=== PATIENT | female | born 1985 | race African-American/Black ===

== ENCOUNTER 2017-06-17 10:35 | Emergency (ER) | payer OTHER ==
[2017-06-17 11:50] LABS: Hematocrit 41 % (35-47); Hemoglobin 13.8 g/dl (12.0-16.0); Mean Corpuscular HGB Conc 34 g/dl (31-36); Mean Corpuscular Hemoglobin 30 pg (27-31); Mean Corpuscular Volume 88 fL (80-97); Mean Platelet Volume 9 um3 (7.4-10.4); Red Blood Count 4.63 10^6/ul (4.0-5.4); Red Cell Distribution Width 15 % (10.5-15); White Blood Count 7.2 10^3/ul (3.5-10.8)
[2017-06-17 12:09] LABS: BUN/Creatinine Ratio 8.4 (8-20); C Reactive Protein 5.44 mg/L (< 5.00); Calcium 9.3 mg/dL (8.6-10.3); EGFR African American 103.1 (>60); EGFR Non-African American 80.2 (>60); Globulin 3.2 g/dL (2-4); Total Bilirubin 0.6 mg/dL (0.2-1.0); Total Protein 7.2 g/dL (6.4-8.9)
--- NOTE | 2017-06-17 12:57 | RAD ---
HISTORY: Right upper quadrant pain COMPARISONS: August 25, 2014 TECHNIQUE: Multiple transverse and longitudinal ultrasound images were obtained of the right upper quadrant of the abdomen using grayscale and color Doppler imaging. FINDINGS: LIVER: The liver is diffusely echogenic and coarse in echotexture, with decreased acoustic transmission. The liver is otherwise normal in shape, size, and contour. There is normal hepatopedal flow of the portal vein on Doppler imaging. BILIARY TREE: There is no intrahepatic or extrahepatic biliary dilatation. The common duct measures 0.4 cm. GALLBLADDER: There is a [id number]-[id number] complex. There is no sonographic Harry sign. PANCREAS: The head of the pancreas is unremarkable. The tail of the pancreas is not well visualized secondary to overlying bowel gas. RIGHT KIDNEY: The right kidney is normal in shape, size, contour, and echogenicity. There is no hydronephrosis or nephrolithiasis. The right kidney measures 11.4 x 4.5 x 4.1 cm. AORTA AND IVC: The aorta and IVC are unremarkable. FLUID: There are no pleural effusions. There is no free fluid within the hepatorenal recess. OTHER FINDINGS: None. IMPRESSION: 1. CHOLELITHIASIS WITHOUT SONOGRAPHIC FEATURES OF ACUTE CHOLECYSTITIS. 2. FATTY LIVER
[2017-06-17 13:08] LABS: Potassium 3.7 mmol/L (3.5-5.0)
--- NOTE | 2017-06-17 13:50 | ED ---
Dwaine Brand Gabriel, scribed for Henry Dsouza MD on 06/17/17 at 1129 . Abdominal Pain/Female - HPI Summary HPI Summary: This patient is a 31 year old F presenting to [facility] accompanied by family with a chief complaint of ABD pain since yesterday at 15:00. The patient rates the pain 7/10 in severity, in her epigastric region, intermittent, and beginning 20 minutes after eating chicken fingers. Symptoms aggravated by nothing. Symptoms alleviated by nothing. Patient denies N/V, melena, SOB, dyspnea, and CP. She believes the pain is coming from her gallbladder and had a similar episode a year prior. She contributes pain during the last episode to gallbladder sludge , no stones. She denies any chance of with her LNMP being a month ago. - History of Current Complaint Chief Complaint: EDAbdPain Stated Complaint: ABD/BACK PAIN Time Seen by Provider: 06/17/17 11:24 Hx Obtained From: Patient Hx Last Menstrual Period: a month prior ?: No Timing: Intermittent Episode Lasting Severity Initially: Severe Severity Currently: Moderate Pain Intensity: 8 Pain Scale Used: 0-10 Numeric Location: Epigastric Radiates: Yes Radiates to: Back Associated Signs and Symptoms: Positive: Negative - N/V, melena, SOB, dyspnea, and CP. Allergies/Adverse Reactions: Allergies Allergy/AdvReac Type Severity Reaction Status Date / Time No Known Allergies Allergy Verified 06/17/17 10:57 PMH/Surg Hx/FS Hx/Imm Hx Previously Healthy: No Sensory History: Denies: Hx Legally Blind Psychiatric History: Reports: Hx Substance Abuse - most recent pt tox was negative - Surgical History Surgery Procedure, Year, and Place: Infectious Disease History: No Infectious Disease History: Denies: Hx Clostridium Difficile, Hx Hepatitis, Hx Human Immunodeficiency Virus (HIV), Hx of Known/Suspected MRSA, Hx Shingles, Hx Tuberculosis, Hx Known/ Suspected VRE, Hx Known/Suspected VRSA, History Other Infectious Disease, Traveled Outside the [place] in Last 30 Days - Family History Known Family History: Positive: Blood Disorder - sickle cell anemia Negative: Diabetes - Social History Alcohol Use: Occasionally Substance Use Type: Reports: None Smoking Status (MU): Light Every Day Tobacco Smoker Amount Used/How Often: 3 cig/day Have You Smoked in the Last Year: Yes Review of Systems Negative: Chest Pain Respiratory: Negative - dyspnea Negative: Shortness Of Breath Positive: Abdominal Pain - epigastric. Negative: Vomiting, Nausea All Other Systems Reviewed And Are Negative: Yes Physical Exam Triage Information Reviewed: Yes Vital Signs On Initial Exam: Initial Vitals Temp Pulse Resp BP Pulse Ox 98.4 F 91 17 126/75 98 06/17/17 10:41 06/17/17 10:41 06/17/17 10:41 06/17/17 10:41 06/17/17 10:41 Appearance: Positive: Well-Appearing, No Pain Distress Skin: Positive: Warm, Skin Color Reflects Adequate Perfusion Head/Face: Positive: Normal Head/Face Inspection Eyes: Positive: EOMI Neck: Positive: Nontender Respiratory/Lung Sounds: Positive: Clear to Auscultation, Breath Sounds Present Cardiovascular: Positive: RRR. Negative: Murmur Abdomen Description: Positive: Other: - RUQ tenderness Musculoskeletal: Positive: Strength/ROM Intact Neurological: Positive: Sensory/Motor Intact, Alert, Oriented to Person Place, Time, CN Intact II-III Psychiatric: Positive: Normal - Gayla Coma Scale Best Eye Response: 4 - Spontaneous Best Motor Response: 6 - Obeys Commands Best Verbal Response: 5 - Oriented Coma Scale Total: 15 Diagnostics - Vital Signs Vital Signs Temp Pulse Resp BP Pulse Ox 06/17/17 10:59 94 97 06/17/17 10:57 135/72 06/17/17 10:41 98.4 F 91 17 126/75 98 - Laboratory Lab Results: Lab Results 06/17/17 06/17/17 06/17/17 Range/Units 11:39 11:39 11:39 WBC 7.2 (3.5-10.8) 10^3/ul RBC 4.63 (4.0-5.4) 10^6/ul Hgb 13.8 (12.0-16.0) g/dl Hct 41 (35-47) % MCV 88 (80-97) fL MCH 30 (27-31) pg MCHC 34 (31-36) g/dl RDW 15 (10.5-15) % Plt Count 295 (150-450) 10^3/ul MPV 9 (7.4-10.4) um3 Neut % (Auto) 54.6 (38-83) % Lymph % (Auto) 32.2 (25-47) % [place] % (Auto) 8.7 (1-9) % Eos % (Auto) 3.5 (0-6) % Baso % (Auto) 1.0 (0-2) % Absolute Neuts (auto) 3.9 (1.5-7.7) 10^3/ul Absolute Lymphs (auto) 2.3 (1.0-4.8) 10^3/ul Absolute Monos (auto) 0.6 (0-0.8) 10^3/ul Absolute Eos (auto) 0.3 (0-0.6) 10^3/ul Absolute Basos (auto) 0.1 (0-0.2) 10^3/ul Absolute Nucleated RBC 0 10^3/ul Nucleated RBC % 0 Sodium 133 (133-145) mmol/L Potassium Pending Chloride 104 (101-111) mmol/L Carbon Dioxide 25 (22-32) mmol/L Anion Gap Pending BUN 7 (6-24) mg/dL Creatinine 0.83 (0.51-0.95) mg/dL Est GFR ( Amer) 103.1 (>60) Est GFR (Non-Af Amer) 80.2 (>60) BUN/Creatinine Ratio 8.4 (8-20) Glucose 98 (70-100) mg/dL Lactic Acid 0.7 (0.5-2.0) mmol/L Calcium 9.3 (8.6-10.3) mg/dL Total Bilirubin 0.60 (0.2-1.0) mg/dL AST Pending ALT 20 (7-52) U/L Alkaline Phosphatase 62 (34-104) U/L C-Reactive Protein 5.44 H (< 5.00) mg/L Total Protein 7.2 (6.4-8.9) g/dL Albumin 4.0 (3.2-5.2) g/dL Globulin 3.2 (2-4) g/dL Albumin/Globulin Ratio 1.3 (1-3) Lipase 92 H (11.0-82.0) U/L Beta HCG, Quant 45.50 mIU/mL Result Diagrams: 06/17/17 11:39 06/17/17 11:39 Lab Statement: Any lab studies that have been ordered have been reviewed, and results considered in the medical decision making process. - Additional Comments Diagnostic Additional Comments: Us Gallbladder reveals, per radiologist, 1. CHOLELITHIASIS WITHOUT SONOGRAPHIC FEATURES OF ACUTE CHOLECYSTITIS. 2. FATTY LIVER. ED physician has reviewed this radiology report and agrees. Re-Evaluation - Re-Evaluation Second Eval Re-Evaluation Time: 13:49 Change: Improved Comment: She is pain free and woul dlike to go home Abdominal Pain Fem Course/Dx - Course Course Of Treatment: 31 yr old female RUQ pain, and gallstones, but LFTs and labs ok. DW Dr Daly, Gen Surgery, who will see the patient in his office in follow up. Patient is pain free. - Diagnoses Provider Diagnoses: Cholelithiases - Provider Notifications Discussed Care Of Patient With: Carlos Daly - Dr Daly recommends DC home and FU with him in the office. Time Discussed With Above Provider: 13:46 Discharge - Discharge Plan Condition: Good Disposition: HOME Patient Education Materials: Biliary Colic (ED), Gallstones (ED) Referrals: No Primary Care Phys,NOPCP [Primary Care Provider] - Carlos Daly MD [Medical Doctor] - [facility] [place] [facility] REFERRAL [Outside] The documentation as recorded by the Dwaine hampton Gabriel accurately reflects the service I personally performed and the decisions made by me, Henry Dsouza MD.
[2017-06-17 13:59] VITALS: BP 125/72
== END 2017-06-17 14:01 | disposition home or self-care (01) ==
LOC: ED 10:35
DX: K80.20 Calculus of gallbladder without cholecystitis without obstruction (principal); F17.210 Nicotine dependence, cigarettes, uncomplicated
CPT/HCPCS: 36415; 76705; 80053; 83605; 83690; 84702; 85025; 86140; 87040; 99282

== ENCOUNTER 2018-07-17 18:37 | Emergency (ER) | payer OTHER ==
[2018-07-17] MEDS ORDERED: Ketorolac INJ* 30 MG/ML 1 ML VIAL IV PUSH ONE (18:47)
[2018-07-17] MEDS ORDERED: NS 0.9% 1000 ML* 1,000 ML IV ONE (18:47)
--- NOTE | 2018-07-17 18:54 | ED ---
GI/ HPI - HPI Summary HPI Summary: 32 year old female presents with epigastric pain for the past day. She states the pain is sharp and radiates to her back. She states it is similar to previous issues she had with gallbladder in the past. She admits to nausea and diarrhea. she denies any vomiting. She states she's had no appetite. She denies any urinary symptoms. No abnormal vaginal discharge. No previous abdominal surgeries. no chest pain or SOB. followed up with surgery but never had surgery. no medical conditions. has not tried anything for symptoms. did not try anything different. - History of Current Complaint Chief Complaint: EDAbdPain Time Seen by Provider: 07/17/18 18:43 Stated Complaint: ABD AND BACK PAIN Hx Last Menstrual Period: a month prior Pain Intensity: 10 - Allergy/Home Medications Allergies/Adverse Reactions: Allergies Allergy/AdvReac Type Severity Reaction Status Date / Time No Known Allergies Allergy Verified 07/17/18 18:41 Home Medications: Home Medications NK [No Home Medications Reported] 07/17/18 [History Confirmed 07/17/18] PMH/Surg Hx/FS Hx/Imm Hx Endocrine/Hematology History: Denies: Hx Anticoagulant Therapy Respiratory History: Denies: Hx Asthma Sensory History: Denies: Hx Legally Blind Opthamlomology History: Denies: Hx Legally Blind Psychiatric History: Reports: Hx Substance Abuse - most recent pt tox was negative - Surgical History Surgery Procedure, Year, and Place: Infectious Disease History: No Infectious Disease History: Denies: Hx Clostridium Difficile, Hx Hepatitis, Hx Human Immunodeficiency Virus (HIV), Hx of Known/Suspected MRSA, Hx Shingles, Hx Tuberculosis, Hx Known/ Suspected VRE, Hx Known/Suspected VRSA, History Other Infectious Disease, Traveled Outside the [place] in Last 30 Days - Family History Known Family History: Positive: Blood Disorder - sickle cell anemia Negative: Diabetes - Social History Alcohol Use: Occasionally Substance Use Type: Reports: None Smoking Status (MU): Light Every Day Tobacco Smoker Amount Used/How Often: 3 cig/day Have You Smoked in the Last Year: Yes Review of Systems Negative: Fever Negative: Chest Pain Negative: Shortness Of Breath Positive: Abdominal Pain, Vomiting, Diarrhea, Nausea All Other Systems Reviewed And Are Negative: Yes Physical Exam Triage Information Reviewed: Yes Vital Signs On Initial Exam: Initial Vitals Temp Pulse Resp BP Pulse Ox 99.2 F 84 18 122/79 98 07/17/18 18:39 07/17/18 18:39 07/17/18 18:39 07/17/18 18:39 07/17/18 18:39 Vital Signs Reviewed: Yes Appearance: Positive: Well-Appearing Skin: Positive: Warm, Dry Head/Face: Positive: Normal Head/Face Inspection Eyes: Positive: Normal, EOMI, PRIYANK, Conjunctiva Clear ENT: Positive: Pharynx normal Respiratory/Lung Sounds: Positive: Clear to Auscultation, Breath Sounds Present Cardiovascular: Positive: Normal, RRR Abdomen Description: Positive: Soft, Other: - tenderness epigastric region Bowel Sounds: Positive: Present Musculoskeletal: Positive: Normal Neurological: Positive: Normal Psychiatric: Positive: Normal Diagnostics - Vital Signs Vital Signs Temp Pulse Resp BP Pulse Ox 07/17/18 18:39 99.2 F 84 18 122/79 98 - Laboratory Result Diagrams: 07/17/18 19:12 07/17/18 19:12 Lab Statement: Any lab studies that have been ordered have been reviewed, and results considered in the medical decision making process. - Ultrasound No standard instances Ultrasound Interpretation Completed By: Radiologist Summary of Ultrasound Findings: IMPRESSION: 1. Cholelithiasis without other findings of cholecystitis. 2. No change from the comparison study. Re-Evaluation - Re-Evaluation First Eval Re-Evaluation Time: 20:05 Change: Improved Comment: patient asking for sandwich, no pain GIGU Course/Dx - Course Course Of Treatment: 32 year old female presents with epigastric pain for the past day. She states the pain is sharp and radiates to her back. She states it is similar to previous issues she had with gallbladder in the past. She admits to nausea and diarrhea. she denies any vomiting. She states she's had no appetite. She denies any urinary symptoms. No abnormal vaginal discharge. No previous abdominal surgeries. no chest pain or SOB. on exam has tenderness epigastric region. no rebound. wbc normal. crp normal. lft normal. lipase slightly elevated. gallbladder u/s shows cholelithasis. patient is pain free. patient would like to be discharge home. will give referral to surgery. patient requesting dr lawson so consults for surgery before patient got . stressed importance of following up. told if develop fever or any new symptoms to return. patient understand and agrees with plan. - Diagnoses Differential Diagnoses - Female: Cholelithiasis, Cholecystitis, Gastroenteritis (Viral) Provider Diagnoses: Cholelithiasis Discharge - Sign-Out/Discharge Documenting (check all that apply): Patient Departure - Discharge Plan Condition: Good Disposition: HOME Patient Education Materials: Gallstones (ED) Referrals: [facility] [place] [facility] REFERRAL [Outside] Alexis Lawson MD [Medical Doctor] - Additional Instructions: avoid fatty foods Take tyenlol or ibuprofen every 6 hours as needed for pain Follow up with surgery Return to ED if develop any new or worsening symptoms - Billing Disposition and Condition Condition: GOOD Disposition: Home
[2018-07-17 19:23] LABS: ABS Basophils 0.1 10^3/ul (0-0.2); ABS Eosinophils 0.4 10^3/ul (0-0.6); ABS Lymphocytes 2.2 10^3/ul (1.0-4.8); ABS Monocytes 0.5 10^3/ul (0-0.8); ABS Neutrophils 3.6 10^3/ul (1.5-7.7); ABS Nucleated RBC 0 10^3/ul; Eosinophil % 5.3 %; Hematocrit 39 % (35-47); Hemoglobin 13.1 g/dl (12.0-16.0); Lymphocyte % 33.3 %; Mean Corpuscular HGB Conc 34 g/dl (31-36); Mean Corpuscular Hemoglobin 30 pg (27-31); Mean Corpuscular Volume 89 fL (80-97); Mean Platelet Volume 8.1 fL (7.4-10.4); Nucleated Red Blood Cells % 0.1; Platelet Count 282 10^3/ul (150-450); Red Blood Count 4.34 10^6/ul (4.00-5.40); Red Cell Distribution Width 14 % (10.5-15); White Blood Count 6.7 10^3/ul (3.5-10.8)
[2018-07-17 19:43] LABS: ALT 42 U/L (7-52); Albumin 3.7 g/dL (3.2-5.2); Albumin/Globulin Ratio 1.3 (1-3); Alkaline Phosphatase 76 U/L (34-104); BUN/Creatinine Ratio 10.1 (8-20); Blood Urea Nitrogen 8 mg/dL (6-24); C Reactive Protein 4.12 mg/L (<8.01); CO2 Carbon Dioxide 29 mmol/L (22-32); Calcium 8.8 mg/dL (8.6-10.3); Chloride 103 mmol/L (101-111); EGFR Non-African American 84.3 (>60); Globulin 2.8 g/dL (2-4); Glucose 108 mg/dL (70-100); Sodium 136 mmol/L (135-145); Total Protein 6.5 g/dL (6.4-8.9)
[2018-07-17 19:45] LABS: AST 22 U/L (13-39); Anion Gap 4 mmol/L (2-11); Potassium 3.9 mmol/L (3.5-5.0)
[2018-07-17 19:47] LABS: HCG Pregnancy < 0.60 mIU/mL
[2018-07-17 20:27] VITALS: BP 118/89
== END 2018-07-17 20:26 | disposition home or self-care (01) ==
LOC: ED 18:37
DX: K80.20 Calculus of gallbladder without cholecystitis without obstruction (principal); R10.13 Epigastric pain; F17.210 Nicotine dependence, cigarettes, uncomplicated; R11.2 Nausea with vomiting, unspecified; R19.7 Diarrhea, unspecified
CPT/HCPCS: 36415; 76705; 80053; 83690; 84702; 85025; 86140; 96361; 96374; 99283; J1885

== ENCOUNTER → 2018-08-22 08:04 | Emergency (ER) | payer OTHER ==
[~2018-08-22 08:04] MED LIST: Famotidine IV* 10 MG/ML 2 ML (20 mg) IV SLOW PU ONE; Morphine VIAL* 4 MG/ML VIAL (1 ml vial) IV ONE; Ondansetron INJ* 2 MG/ML VIAL IV ONE; Sucralfate SUSP 1 GM/10 ml 10 ML UDC PO ONE; cefTRIAXone(*) 1 GM in NS 0.9% 50 ML* 50 ML IVPB ONE
--- NOTE | 2018-08-22 08:12 | ED ---
Abdominal Pain/Female - HPI Summary HPI Summary: Patient is a 32-year-old female female with a history of cholelithiasis presenting to the ED with mid epigastric pain radiating through to the mid back since yesterday. She denies any fevers, sweats, chills. She endorses vomiting 4 times today. Denies any diarrhea or constipation. She's been seen for this twice in the past and both times has had positive ultrasound for cholelithiasis without obstruction or cholecystitis. She states symptoms have worsened and she would like the gallbladder to be removed. She is requesting a surgical consult. She is not taken anything for pain. Symptoms are not better or worse with eating or positioning. Not worse or better with time of day. She states in the past after arriving to the ED the pain tends to subside shortly afterwards. She's never been diagnosed with GERD or ulcers. - History of Current Complaint Stated Complaint: ABD PAIN Time Seen by Provider: 08/22/18 08:07 Hx Obtained From: Patient Hx Last Menstrual Period: a month prior ?: No Onset/Duration: Sudden Onset Timing: Constant Severity Initially: Severe Severity Currently: Severe Pain Scale Used: 0-10 Numeric Location: Epigastric Radiates: Yes Radiates to: Back Character: Sharp Aggravating Factor(s): Nothing Alleviating Factor(s): Nothing Associated Signs and Symptoms: Positive: Nausea, Vomiting Allergies/Adverse Reactions: Allergies Allergy/AdvReac Type Severity Reaction Status Date / Time No Known Allergies Allergy Verified 07/17/18 18:41 PMH/Surg Hx/FS Hx/Imm Hx Previously Healthy: Yes Endocrine/Hematology History: Reports: Hx Sickle Cell Disease - carries the trait Denies: Hx Anticoagulant Therapy Respiratory History: Denies: Hx Asthma GI History: Reports: Other GI Disorders - current gallbladder issue History: Reports: Other Problems/Disorders - hx of uti's Musculoskeletal History: Reports: Other Musculoskeletal History - reports scoliosis Sensory History: Denies: Hx Legally Blind Opthamlomology History: Denies: Hx Legally Blind Psychiatric History: Reports: Hx Substance Abuse - most recent pt tox was negative - Surgical History Surgery Procedure, Year, and Place: Hx Anesthesia Reactions: No - Immunization History Hx Pertussis Vaccination: No Immunizations Up to Date: Yes Infectious Disease History: Denies: Hx Clostridium Difficile, Hx Hepatitis, Hx Human Immunodeficiency Virus (HIV), Hx of Known/Suspected MRSA, Hx Shingles, Hx Tuberculosis, Hx Known/ Suspected VRE, Hx Known/Suspected VRSA, History Other Infectious Disease - Family History Known Family History: Positive: Blood Disorder - sickle cell anemia Negative: Diabetes - Social History Occupation: Employed Full-time Lives: Alone Alcohol Use: Occasionally Alcohol Amount: reports 2 or 3 drinks per week Hx Substance Use: No Substance Use Type: Reports: None Substance Use Comment - Amount & Last Used: reports socially - last use on 2016 Smoking Status (MU): Light Every Day Tobacco Smoker Amount Used/How Often: 3 cig/day Have You Smoked in the Last Year: Yes Review of Systems Constitutional: Negative Negative: Fever, Chills, Fatigue, Skin Diaphoresis Negative: Palpitations, Chest Pain Negative: Shortness Of Breath, Cough Positive: Abdominal Pain, Vomiting, Nausea. Negative: Diarrhea Genitourinary: Negative Positive: no symptoms reported, see HPI Psychological: Normal All Other Systems Reviewed And Are Negative: Yes Physical Exam Triage Information Reviewed: Yes Vital Signs Reviewed: Yes Appearance: Positive: Well-Appearing, Well-Nourished Skin: Positive: Warm, Skin Color Reflects Adequate Perfusion Head/Face: Positive: Normal Head/Face Inspection Eyes: Positive: EOMI, PRIYANK, Conjunctiva Clear Neck: Positive: Supple, No Lymphadenopathy Respiratory/Lung Sounds: Positive: Clear to Auscultation, Breath Sounds Present Cardiovascular: Positive: RRR, Pulses are Symmetrical in both Upper and Lower Extremities. Negative: Leg Edema Left, Leg Edema Right Abdomen Description: Positive: Soft - Of, Other: - Irregular. Negative: CVA Tenderness (R), CVA Tenderness (L) Bowel Sounds: Positive: Present Musculoskeletal: Positive: Normal, Strength/ROM Intact Neurological: Positive: Sensory/Motor Intact, Alert, Oriented to Person Place, Time Diagnostics - Laboratory Result Diagrams: 08/22/18 07:32 08/22/18 07:33 Lab Statement: Any lab studies that have been ordered have been reviewed, and results considered in the medical decision making process. Abdominal Pain Fem Course/Dx - Course Course Of Treatment: On physical examination, patient has epigastric tenderness which is radiating through to the back. There is no right upper quadrant tenderness, no positive Harry sign. Negative Rovsing sign and no tenderness over McBurney's point. No suprapubic tenderness or tenderness in all other 4 quadrants. Lungs CTA, RRR. Patient does not appear diaphoretic or toxic, however is tearful on arrival due to pain. She endorses 10/10 pain and states this is the same pain she has had in the past. On arrival she is given famotidine IV, sucralfate and Zofran. She states the nausea has improved, however continues to have pain. She continues to remain tearful. She is given morphine 4 mg with minimal relief. Again one hour later she is given another 4 mg with minimal relief. At this time a chest x-ray and a d-dimer was obtained. D-dimer is negative at 213. Chest x-ray shows bronchopneumonia. UA shows UTI and patient is given Rocephin IV. She is discharged with abx. She will follow up with surgery. - Diagnoses Differential Diagnosis: Positive: Urinary Tract Infection Provider Diagnoses: Pneumonia, Urinary tract infection Discharge - Sign-Out/Discharge Documenting (check all that apply): Patient Departure - Discharge Plan Condition: Stable Disposition: HOME Prescriptions: Levofloxacin TAB* [Levaquin TAB*] 500 mg PO DAILY #5 tab Patient Education Materials: Pneumonia (ED) Referrals: No Primary Care Phys,NOPCP [Primary Care Provider] - Alexis Retana MD [Medical Doctor] - 3 Days (Please follow up this week) Additional Instructions: You have a UTI and a bronchopneumonia This will be treated with antibiotics Please take Levaquin once daily 5 days, begin this tomorrow Please call Dr. Calhoun office today to make an appointment If any symptoms worsen, return to the ED Decrease fatty food intake - Billing Disposition and Condition Condition: STABLE Disposition: Home
[2018-08-22 08:44] LABS: ABS Basophils 0 10^3/ul (0-0.2); ABS Eosinophils 0 10^3/ul (0-0.6); ABS Lymphocytes 1.2 10^3/ul (1.0-4.8); ABS Monocytes 0.4 10^3/ul (0-0.8); ABS Neutrophils 5.6 10^3/ul (1.5-7.7); ABS Nucleated RBC 0 10^3/ul; Eosinophil % 0.5 %; Hematocrit 41 % (35-47); Hemoglobin 13.8 g/dl (12.0-16.0); Lymphocyte % 16.1 %; Mean Corpuscular HGB Conc 34 g/dl (31-36); Mean Corpuscular Hemoglobin 30 pg (27-31); Mean Corpuscular Volume 89 fL (80-97); Mean Platelet Volume 8.5 fL (7.4-10.4); Nucleated Red Blood Cells % 0; Platelet Count 305 10^3/ul (150-450); Red Blood Count 4.59 10^6/ul (4.00-5.40); Red Cell Distribution Width 15 % (10.5-15); White Blood Count 7.2 10^3/ul (3.5-10.8)
[2018-08-22 09:05] LABS: ALT 40 U/L (7-52); Albumin 3.9 g/dL (3.2-5.2); Albumin/Globulin Ratio 1.1 (1-3); Alkaline Phosphatase 70 U/L (34-104); Amylase 50 U/L (29-103); BUN/Creatinine Ratio 10.7 (8-20); Blood Urea Nitrogen 9 mg/dL (6-24); C Reactive Protein 3.42 mg/L (<8.01); CO2 Carbon Dioxide 26 mmol/L (22-32); Calcium 9.4 mg/dL (8.6-10.3); Chloride 104 mmol/L (101-111); Creatine Kinase 81 U/L (10-223); EGFR Non-African American 78.1 (>60); Globulin 3.4 g/dL (2-4); Glucose 137 mg/dL (70-100); Sodium 135 mmol/L (135-145); Total Protein 7.3 g/dL (6.4-8.9)
[2018-08-22 09:10] LABS: HCG Pregnancy < 0.60 mIU/mL
[2018-08-22 09:14] LABS: Anion Gap 5 mmol/L (2-11); Magnesium 1.8 mg/dL (1.9-2.7); Potassium 4.2 mmol/L (3.5-5.0)
[2018-08-22 09:28] LABS: AST 26 U/L (13-39)
[2018-08-22 09:42] LABS: Urine Appearance Cloudy; Urine Bacteria Absent (Absent); Urine Bilirubin Negative (Negative); Urine Blood Negative (Negative); Urine Color Yellow; Urine Glucose Negative (Negative); Urine Ketones Negative (Negative); Urine Nitrite Negative (Negative); Urine Protein Negative (Negative); Urine Red Blood Cell 1+(3-5/hpf) (Absent); Urine Specific Gravity 1.016 (1.010-1.030); Urine Urobilinogen Negative (Negative); Urine White Blood Cell 3+(>20/hpf) (Absent)
[2018-08-22 14:53] VITALS: BP 130/76
--- NOTE | 2018-08-24 07:35 | ED ---
Progress - Progress Note Progress Note: Patient's preliminary urine culture reveals greater than 100,000 Escherichia coli. Patient was diagnosed with pneumonia and treated with Levaquin. Final results pending. Course/Dx - Course Course Of Treatment: On physical examination, patient has epigastric tenderness which is radiating through to the back. There is no right upper quadrant tenderness, no positive Harry sign. Negative Rovsing sign and no tenderness over McBurney's point. No suprapubic tenderness or tenderness in all other 4 quadrants. Lungs CTA, RRR. Patient does not appear diaphoretic or toxic, however is tearful on arrival due to pain. She endorses 10/10 pain and states this is the same pain she has had in the past. On arrival she is given famotidine IV, sucralfate and Zofran. She states the nausea has improved, however continues to have pain. She continues to remain tearful. She is given morphine 4 mg with minimal relief. Again one hour later she is given another 4 mg with minimal relief. At this time a chest x-ray and a d-dimer was obtained. D-dimer is negative at 213. Chest x-ray shows bronchopneumonia. UA shows UTI and patient is given Rocephin IV. She is discharged with abx. She will follow up with surgery. - Diagnoses Provider Diagnoses: Pneumonia, Urinary tract infection Discharge - Sign-Out/Discharge Documenting (check all that apply): Post-Discharge Follow Up - Discharge Plan Condition: Stable Disposition: HOME Prescriptions: Levofloxacin TAB* [Levaquin TAB*] 500 mg PO DAILY #5 tab Patient Education Materials: Pneumonia (ED) Referrals: Alexis Retana MD [Medical Doctor] - 3 Days (Please follow up this week) No Primary Care Phys,NOPCP [Primary Care Provider] - Additional Instructions: You have a UTI and a bronchopneumonia This will be treated with antibiotics Please take Levaquin once daily 5 days, begin this tomorrow Please call Dr. Calhoun office today to make an appointment If any symptoms worsen, return to the ED Decrease fatty food intake - Billing Disposition and Condition Condition: STABLE Disposition: Home
== END | disposition home or self-care (01) ==
LOC: ED 08:04
DX: J18.9 Pneumonia, unspecified organism (principal); N39.0 Urinary tract infection, site not specified; R11.2 Nausea with vomiting, unspecified; F17.210 Nicotine dependence, cigarettes, uncomplicated
CPT/HCPCS: 36415; 71046; 80053; 81003; 81015; 82150; 82550; 83605; 83690; 83735; 84484; 84702; 85025; 85379; 86140; 87077; 87086; 87186; 93005; 96365; 96375; 96376; 99284; A9270-GY; J0696; J2270; J2405

== ENCOUNTER 2018-10-18 08:38 | Emergency (ER) | payer OTHER ==
[2018-10-18 09:27] LABS: ABS Basophils 0 10^3/ul (0-0.2); ABS Eosinophils 0.1 10^3/ul (0-0.6); ABS Lymphocytes 1.5 10^3/ul (1.0-4.8); ABS Monocytes 0.3 10^3/ul (0-0.8); ABS Neutrophils 4.7 10^3/ul (1.5-7.7); ABS Nucleated RBC 0 10^3/ul; Eosinophil % 0.8 %; Hematocrit 41 % (33-41); Hemoglobin 13.8 g/dL (12.0-16.0); Lymphocyte % 23.1 %; Mean Corpuscular HGB Conc 34 g/dL (31-36); Mean Corpuscular Hemoglobin 30 pg (27-31); Mean Corpuscular Volume 90 fL (80-97); Mean Platelet Volume 8.4 fL (7.4-10.4); Nucleated Red Blood Cells % 0.1; Platelet Count 306 10^3/uL (150-450); Red Blood Count 4.59 10^6 /uL (3.70-4.87); Red Cell Distribution Width 15 % (10.5-15); White Blood Count 6.7 10^3/uL (3.5-10.8)
--- NOTE | 2018-10-18 09:30 | ED ---
Abdominal Pain/Female - HPI Summary HPI Summary: Patient is a 33-year-old female who presents emergency department complaining of upper abdominal pain and back pain started last night. Patient notes associated symptoms of one episode of vomiting. Patient states she is a history of cholelithiasis and has been referred to surgery for cholecystectomy. Patient also notes that she's been having dysuria times a few days. She has a history of kidney stones but states she does not have any flank pain and pain feels different. Patient denies recent illness, chest pain, shortness of breath , fever. Denies vaginal discharge or bleeding. Symptoms moderate in severity. No current modifying factors. - History of Current Complaint Chief Complaint: EDAbdPain Stated Complaint: ABD, FLANK, BACK PAIN PER PT Time Seen by Provider: 10/18/18 09:21 Hx Obtained From: Patient Hx Last Menstrual Period: a month prior Pain Intensity: 9 Allergies/Adverse Reactions: Allergies Allergy/AdvReac Type Severity Reaction Status Date / Time No Known Allergies Allergy Verified 10/18/18 08:56 PMH/Surg Hx/FS Hx/Imm Hx Previously Healthy: Yes Endocrine/Hematology History: Reports: Hx Sickle Cell Disease - carries the trait Denies: Hx Anticoagulant Therapy Respiratory History: Denies: Hx Asthma GI History: Reports: Other GI Disorders - current gallbladder issue History: Reports: Other Problems/Disorders - hx of uti's Musculoskeletal History: Reports: Other Musculoskeletal History - reports scoliosis Sensory History: Denies: Hx Legally Blind Opthamlomology History: Denies: Hx Legally Blind Psychiatric History: Reports: Hx Substance Abuse - most recent pt tox was negative - Surgical History Surgery Procedure, Year, and Place: Hx Anesthesia Reactions: No Infectious Disease History: No Infectious Disease History: Denies: Hx Clostridium Difficile, Hx Hepatitis, Hx Human Immunodeficiency Virus (HIV), Hx of Known/Suspected MRSA, Hx Shingles, Hx Tuberculosis, Hx Known/ Suspected VRE, Hx Known/Suspected VRSA, History Other Infectious Disease, Traveled Outside the [place] in Last 30 Days - Family History Known Family History: Positive: Blood Disorder - sickle cell anemia, Non- Contributory Negative: Diabetes - Social History Occupation: Employed Full-time Lives: With Family Alcohol Use: Occasionally Alcohol Amount: reports 2 or 3 drinks per week Hx Substance Use: No Substance Use Type: Reports: Marijuana Substance Use Comment - Amount & Last Used: edibles Smoking Status (MU): Light Every Day Tobacco Smoker Amount Used/How Often: 3 cig/day Have You Smoked in the Last Year: Yes Review of Systems Constitutional: Negative Negative: Fever, Chills ENT: Negative Cardiovascular: Negative Respiratory: Negative Negative: Shortness Of Breath, Cough Positive: Abdominal Pain, Vomiting, Nausea. Negative: Diarrhea Positive: dysuria. Negative: discharge, flank pain Neurological: Negative All Other Systems Reviewed And Are Negative: Yes Physical Exam Triage Information Reviewed: Yes Vital Signs On Initial Exam: Initial Vitals Temp Pulse Resp BP Pulse Ox 98.4 F 88 16 112/78 97 10/18/18 08:53 10/18/18 08:53 10/18/18 08:53 10/18/18 08:53 10/18/18 08:53 Vital Signs Reviewed: Yes Appearance: Positive: Well-Appearing - Pt. lying in bed in NAD. Appears in pain with movement. Skin: Positive: Warm, Dry Head/Face: Positive: Normal Head/Face Inspection Eyes: Positive: Normal, EOMI ENT: Positive: Pharynx normal, TMs normal Neck: Positive: Supple Respiratory/Lung Sounds: Positive: Clear to Auscultation, Breath Sounds Present. Negative: Rales, Rhonchi, Wheezes Cardiovascular: Positive: Normal, RRR Abdomen Description: Positive: Other: - Abd. is soft with moderate tenderness to the RUQ. Positive sandoval sign. No CVA tenderness bilaterally. Neurological: Positive: Normal, CN Intact II-III Psychiatric: Positive: Affect/Mood Appropriate Diagnostics - Vital Signs Vital Signs Temp Pulse Resp BP Pulse Ox 10/18/18 09:03 87 98 10/18/18 08:53 98.4 F 88 16 112/78 97 - Laboratory Lab Results: Lab Results 10/18/18 Range/Units 09:18 WBC 6.7 (3.5-10.8) 10^3/uL RBC 4.59 (3.70-4.87) 10^6 /uL Hgb 13.8 (12.0-16.0) g/dL Hct 41 (33-41) % MCV 90 (80-97) fL MCH 30 (27-31) pg MCHC 34 (31-36) g/dL RDW 15 (10.5-15) % Plt Count 306 (150-450) 10^3/uL MPV 8.4 (7.4-10.4) fL Neut % (Auto) 70.4 % Lymph % (Auto) 23.1 % [place] % (Auto) 5.2 % Eos % (Auto) 0.8 % Baso % (Auto) 0.5 % Absolute Neuts (auto) 4.7 (1.5-7.7) 10^3/ul Absolute Lymphs (auto) 1.5 (1.0-4.8) 10^3/ul Absolute Monos (auto) 0.3 (0-0.8) 10^3/ul Absolute Eos (auto) 0.1 (0-0.6) 10^3/ul Absolute Basos (auto) 0 (0-0.2) 10^3/ul Absolute Nucleated RBC 0 10^3/ul Nucleated RBC % 0.1 Result Diagrams: 10/18/18 09:18 10/18/18 09:18 Lab Statement: Any lab studies that have been ordered have been reviewed, and results considered in the medical decision making process. Abdominal Pain Fem Course/Dx - Course Course Of Treatment: Pt. presenting for upper abdominal pain. She is afebrile stable vital signs. She does have moderate upper quadrant pain on exam. Given history of cholelithiasis we'll repeat ultrasound today to rule out cholecystitis. Blood work, chest x-ray and UA also ordered. Urinalysis shows small amounts of bacteria and leukocytes and epithelial cells, negative for RBCs. Labs are unremarkable. Negative ddimer. Patient has no flank pain on exam., Gallbladder ultrasound is negative for cholecystitis, reading per radiology. Patient was given IV fluids, Zofran and Toradol. Patient feeling better after medications on reexamination. Results were discussed. Given patient's dysuria will start on Keflex. Advised patient to follow-[facility]. To return to the ER if symptoms change or worsen. Pt. understands and agrees with plan. - Diagnoses Differential Diagnosis: Positive: Gall Bladder Disease, , Renal Colic, Urinary Tract Infection Provider Diagnoses: Biliary colic, UTI (urinary tract infection) Discharge - Sign-Out/Discharge Documenting (check all that apply): Patient Departure Patient Received Moderate/Deep Sedation with Procedure: No - Discharge Plan Condition: Improved Disposition: HOME Prescriptions: Cephalexin CAP* [Keflex CAP*] 500 mg PO BID #20 cap Patient Education Materials: Biliary Colic (ED), Urinary Tract Infection in Women (ED) Forms: *Work Release Referrals: [facility] [Outside] Luís Marcial MD [Medical Doctor] - Additional Instructions: Schedule a follow up appointment with the [facility] and surgery Take antibiotic as directed Increase fluids and rest Avoid fatty foods Return to ER for increased pain, fever, vomiting or if concerned - Billing Disposition and Condition Condition: IMPROVED Disposition: Home - Attestation Statements Provider Attestation: I was available for consult. This patient was seen by the CHELSEA. The patient was not presented to, seen by, or examined by me. -Robb
[2018-10-18] MEDS ORDERED: Ondansetron INJ* 2 MG/ML VIAL IV ONE (09:31)
[2018-10-18] MEDS ORDERED: Ketorolac INJ* 30 MG/ML 1 ML VIAL IV PUSH ONE (09:31)
[2018-10-18] MEDS ORDERED: NS 0.9% 1000 ML** 1,000 ML IV ONE (09:35)
[2018-10-18 09:41] LABS: Urine Appearance Cloudy; Urine Bacteria 1+ (Absent); Urine Bilirubin Negative (Negative); Urine Blood Negative (Negative); Urine Color Yellow; Urine Glucose Negative (Negative); Urine Ketones Negative (Negative); Urine Nitrite Negative (Negative); Urine Protein Negative (Negative); Urine Red Blood Cell Trace(0-2/hpf) (Absent); Urine Specific Gravity 1.013 (1.010-1.030); Urine Squamous Epithelial Cell Present (Absent); Urine Urobilinogen Negative (Negative); Urine White Blood Cell 3+(>20/hpf) (Absent)
[2018-10-18 09:47] LABS: ALT 19 U/L (7-52); Albumin 4.1 g/dL (3.2-5.2); Albumin/Globulin Ratio 1.3 (1-3); Alkaline Phosphatase 66 U/L (34-104); BUN/Creatinine Ratio 8.7 (8-20); Blood Urea Nitrogen 6 mg/dL (6-24); CO2 Carbon Dioxide 24 mmol/L (22-32); Chloride 106 mmol/L (101-111); EGFR African American 118.6 (>60); Globulin 3.1 g/dL (2-4); Glucose 103 mg/dL (70-100); Sodium 136 mmol/L (135-145); Total Protein 7.2 g/dL (6.4-8.9)
[2018-10-18 09:53] LABS: HCG Pregnancy < 0.60 mIU/mL
[2018-10-18 10:36] LABS: Anion Gap 6 mmol/L (2-11); Magnesium 1.8 mg/dL (1.9-2.7)
[2018-10-18 11:40] VITALS: BP 116/84
--- NOTE | 2018-10-20 06:00 | PN ---
Progress Note - Progress Note Date of Service: 10/18/18 Note: Urine culture preliminary grew Escherichia coli 100,000 Patient was on Keflex prior to discharge We will await sensitivities <Emily Napoles - Last Filed: 10/20/18 06:00> - Progress Note Date of Service: 10/20/18 <Radha Donis - Last Filed: 10/20/18 10:38> Attestation Statement Provider Attestation: I was not working, present or contacted by CHELSEA writing this note <Radha Donis - Last Filed: 10/20/18 10:38>
--- NOTE | 2018-10-21 06:13 | PN ---
Progress Note - Progress Note Date of Service: 10/18/18 Note: Patient was placed on Keflex prior to discharge This is sensitive to organism Nothing further is required
== END 2018-10-18 11:40 | disposition home or self-care (01) ==
LOC: ED 08:38
DX: K80.50 Calculus of bile duct without cholangitis or cholecystitis without obstruction (principal); K80.20 Calculus of gallbladder without cholecystitis without obstruction; N39.0 Urinary tract infection, site not specified; B96.20 Unspecified Escherichia coli [E. coli] as the cause of diseases classified elsewhere; R11.11 Vomiting without nausea; Z87.442 Personal history of urinary calculi; F17.210 Nicotine dependence, cigarettes, uncomplicated
CPT/HCPCS: 36415; 71046; 76705; 80053; 81003; 81015; 83690; 83735; 84702; 85025; 85379; 87077; 87086; 87186; 96361; 96374; 96375; 99283; J1885; J2405

== ENCOUNTER → 2019-02-23 05:29 | Day surgery (SDC) | payer OTHER ==
[~2019-02-23 05:29] MED LIST changes: +Atracurium* 10 MG/ML 10 ML VIAL ONE; +Buffered Lidocaine 1% SYRIN* 1 ML/SYRINGE INTRADERM ONE; +Bupivacaine 0.25% W/EPI* 10 ML SDV ONE; +Dexamethasone TAB* 4 MG ONE; +Dexamethasone TAB* 4 MG PO ONE; +DiMENhydriNATE IV* 50 MG/ML VIAL IV PUSH PRN; +DiMENhydriNATE IV* 50 MG/ML VIAL ONE; +Famotidine IV* 10 MG/ML 2 ML (20 mg) IV ONE; -Famotidine IV* 10 MG/ML 2 ML (20 mg) IV SLOW PU ONE; +Famotidine IV* 10 MG/ML 2 ML (20 mg) ONE; +Glycopyrrolate IV* 0.2 MG/ML 1 ML VIAL ONE; +HYDROmorphone INJ1* 1 MG/ML SYRINGE IV PRN; +KETAMINE HCL* 50 MG/ML 10 ML VIAL ONE; +Ketorolac INJ* 30 MG/ML 1 ML VIAL ONE; +Lactated Ringers 1000 ML Bag* 1,000 ML IV SCH; +Midazolam* 1 MG/ML 5 ML VIAL (5 MG) ONE; -Morphine VIAL* 4 MG/ML VIAL (1 ml vial) IV ONE; +Naloxone* 0.4 MG/ML 1 ML VIAL IV PRN; +Neostigmine Methylsulfate* 1 MG/ML 10 ML VIAL (1 mg/ml) ONE; -Ondansetron INJ* 2 MG/ML VIAL IV ONE; +Ondansetron ODT TAB* 4 MG ONE; +Ondansetron ODT TAB* 4 MG PO ONE; +PROCHLORPERAZINE INJ 5 MG/ML 2 ML VIAL IV PRN; +Scopolamine 1.5 mg* PATCH ONE; +Scopolamine 1.5 mg* PATCH TRANSDERM PRN; +Scopolamine PATCH Remove* 1 NOTE MISC PATCH OFF ONE; -Sucralfate SUSP 1 GM/10 ml 10 ML UDC PO ONE; +ceFAZolin 2 GM in NS PREMIX(*) 2 GM/100 ML BAG IVPB ONE; -cefTRIAXone(*) 1 GM in NS 0.9% 50 ML* 50 ML IVPB ONE; +fentaNYL* 50 MCG/ML 2 ML VIAL (100 MCG VIAL) IV PRN; +fentaNYL* 50 MCG/ML 5 ML VIAL (250 MCG VIAL) ONE; +oxyCODONE/Acetamin 5/325 MG* TAB ONE; +oxyCODONE/Acetamin 5/325 MG* TAB PO PRN
--- NOTE | 2019-02-23 10:45 | BRIEFOPN ---
Brief Operative Note - Surgery Procedures: Procedures OPERATIVE REPORT Pre-op: Gallstones and RUQ abd pain Post-Op: Same Procedure: Laparoscopic cholecystectomy Surgeon: MD Addy Asst: SHELLY Carr Anes: general with local , [place] IVF:1 liter of crystalloid EBL:min Specimen: Gallbladder Drain: none Wound: 2 To PACU
[2019-02-23 11:51] VITALS: BP 106/64
--- NOTE | 2019-02-23 19:24 | OP ---
CC: [facility] positive of AQUATIC ECOLOGIST OPERATIVE REPORT: DATE OF OPERATION: 02/23/19 DATE OF : 85 SURGEON: Carlos Daly MD INTERIOR DESIGN FACULTY MEMBER: SHELLY Woods ANESTHESIOLOGIST: Dr. Abel. ANESTHESIA: General with local. PRE-OP DIAGNOSES: Cholelithiasis and right upper quadrant abdominal pain POST-OP DIAGNOSES: Cholelithiasis and right upper quadrant abdominal pain. OPERATIVE PROCEDURE: Laparoscopic cholecystectomy. ESTIMATED BLOOD LOSS: Minimal. IV FLUIDS: 1 L of crystalloid. SPECIMENS: Gallbladder. WOUND CLASSIFICATION: II. COMPLICATIONS: None. DRAINS: None. BRIEF HISTORY: Ms. Margie Suarez is a 33-year-old woman with long history of epigastric and right upper quadrant abdominal pain after eating large meals. Several ultrasounds over the years have show n multiple gallstones without wall thickening. Laboratory workup was unremarkable. She is now to dergo an elective cholecystectomy for symptomatic cholelithiasis. DESCRIPTION OF PROCEDURE: Written and informed consent was obtained, the abdomen was marked with ind elible ink, and the preoperative antibiotics were administered. The patient was taken to the operatin g room and placed in the supine position. Sequential compression devices and warming blanket were mary lied. General anesthesia was administered. The abdomen was prepped and draped in the usual sterile fashion. Time-out verification was completed. Initially, 1% lidocaine with epinephrine was infiltrated in the left upper quadrant of the abdominal wall several fingerbreadths below the costal margin and a transverse incision was made about 5 mm. A 5 mm Optiview port was then passed through the abdominal wall with direct vision with the camera and the peritoneal cavity was entered without difficulty. The abdomen was insufflated. Once I assured entry to the abdominal cavity, the peritoneal cavity was insufflated to 15 mmHg. Careful evaluation of the omentum and viscera in the left upper quadrant at the site of the initial entrance site showed no evidence of injury. Under direct vision, a 5 mm port was placed just above the umbilicus. An 11 mm epigastric port was placed and two 5 mm ports were placed in the right side of the abdominal wall in the upper abdomen in usual position. Careful evaluation noted the liver to be unremarkable. However, there were some adhesions from the a nterior surface of the dome of the liver to the anterior abdominal wall. These were taken down sharp ly to improve visualization. They may have been from previous inflammatory episode. The gallbladder was identified. It was slightly whitish in color and slightly thickened in the wall without evidence of edema and it was nondistended. It was easily grasped and elevated up over the li nahun bed. The infundibulum was identified and here it was noted that there were findings most consistent with a more chronic gallbladder disease with thickened peritoneum along the medial and lateral aspect of th e gallbladder, which was taken down the sharply. Cystic duct and artery were carefully identified and dissected as I entered the gallbladder. I took a considerable portion of the inferior part of the g allbladder of the liver bed using the critical view technique to assure myself of only these 2 struct ures that entered the gallbladder. The cystic duct appeared to be of normal caliber. The cystic george t was then doubly clipped and divided, likewise the cystic artery was also clipped and divided. The gallbladder was removed from the liver bed with cautery and placed in an EndoCatch bag. It was then brought out through the epigastric port. The liver bed was then irrigated. Hemostasis was assured. No bile leak was noted. All ports removed under direct vision of the camera. There was no abdominal wall bleeding. All 5 incision were then subsequently closed with subcuticular 4-0 Vicryl suture. Steri-Strips applied. The patient tolerate d the procedure well and was taken to the recovery room in stable condition. [id number]/[facility] #: [id number]
== END | disposition home or self-care (01) ==
LOC: OR 05:29
PROVIDERS: ATTEND Surgery
DX: K80.10 Calculus of gallbladder with chronic cholecystitis without obstruction (principal); Z72.0 Tobacco use; D57.3 Sickle-cell trait
CPT/HCPCS: 81025; 88304; A9270-GY; J0690; J1240; J1885; J2250; J2710; J3010; J8540

== ENCOUNTER 2019-06-24 12:36 | Emergency (ER) | payer OTHER ==
[2019-06-24] MEDS ORDERED: Pseudoephedrine TAB* 60 MG PO ONE (12:52)
--- NOTE | 2019-06-24 12:53 | ED ---
Complex/Multi-Sys Presentation - HPI Summary HPI Summary: Patient is a 33 y/o F presenting to [facility] with complaints of productive cough, sore throat, nasal congestion and discharge, sinus pressure and pain, and diffuse body aches for the past two days. Fever is denied. She has not received a flu shot. No known sick contacts noted. On triage, pain is rated 8/10. PSHx of cholecystectomy. She denies tobacco, alcohol and substance usage. Home medications and allergies are reviewed. Mother is present in the room. - History Of Current Complaint Chief Complaint: EDThroatPain Time Seen by Provider: 06/24/19 12:46 Hx Obtained From: Patient Onset/Duration: Lasting Days, Still Present Timing: Constant, Days Severity Currently: Severe Location: Pain At: - diffuse body aches, sore throat Associated Signs And Symptoms: Positive: Cough, Other - positive - nasal congestion and discharge, sinus pressure and pain, diffuse body aches, sore throat. Negative: Fever - Allergies/Home Medications Allergies/Adverse Reactions: Allergies Allergy/AdvReac Type Severity Reaction Status Date / Time No Known Allergies Allergy Verified 06/24/19 12:40 PMH/Surg Hx/FS Hx/Imm Hx Endocrine/Hematology History: Reports: Hx Sickle Cell Disease - carries the trait Denies: Hx Anticoagulant Therapy, Hx Bone Marrow Disease, Hx Diabetes, Hx Thyroid Disease, Hx Anemia - BLOOD TRANSF 12 YRS AGO D/T EMERGENT PREG.COMPLICATION Cardiovascular History: Denies: Other Cardiovascular Problems/Disorders Respiratory History: Denies: Hx Asthma, Other Respiratory Problems/Disorders GI History: Reports: Other GI Disorders - current gallbladder issue Denies: Hx Gastroesophageal Reflux Disease History: Reports: Other Problems/Disorders - hx of uti's, CURRENTLY HAS A UTI AND IS ON MACROBID X 5 DAYS Denies: Hx Kidney Infection, Hx Kidney Stones Musculoskeletal History: Reports: Other Musculoskeletal History - reports scoliosis Sensory History: Denies: Hx Contacts or Glasses, Hx Legally Blind, Hx Hearing Aid Opthamlomology History: Denies: Hx Contacts or Glasses, Hx Legally Blind Neurological History: Denies: Other Neuro Impairments/Disorders Psychiatric History: Reports: Hx Substance Abuse - most recent pt tox was negative - Surgical History Surgery Procedure, Year, and Place: Hx Anesthesia Reactions: No Infectious Disease History: No Infectious Disease History: Denies: Hx Clostridium Difficile, Hx Hepatitis, Hx Human Immunodeficiency Virus (HIV), Hx of Known/Suspected MRSA, Hx Shingles, Hx Tuberculosis, Hx Known/ Suspected VRE, Hx Known/Suspected VRSA, History Other Infectious Disease, Traveled Outside the [place] in Last 30 Days - Family History Known Family History: Positive: Blood Disorder - sickle cell anemia Negative: Diabetes - Social History Alcohol Use: None Alcohol Amount: 2-3 X MONTH Hx Substance Use: No Substance Use Type: Reports: None Substance Use Comment - Amount & Last Used: DENIES USE OF ANY AT THIS TIME Smoking Status (MU): Former Smoker Type: Cigarettes Amount Used/How Often: SOCIAL SMOKER ONLY 2-3 CIGARETTES 3 X MONTH Have You Smoked in the Last Year: Yes - 02/01/2019 Review of Systems Constitutional: Other - positive - diffuse body aches Negative: Fever ENT: Other - positive - nasal congestion and discharge, sinus pressure and pain Positive: Sore Throat, Nasal Discharge Positive: Cough All Other Systems Reviewed And Are Negative: Yes Physical Exam - Summary Physical Exam Summary: VITAL SIGNS: Reviewed. GENERAL: Patient is a well-developed and nourished female who is lying comfortable in the stretcher. Patient is not in any acute respiratory distress. HEAD AND FACE: No signs of trauma. No ecchymosis, hematomas or skull depressions. No sinus tenderness. Nasal congestion noted. EYES: PERRLA, EOMI x 2, No injected conjunctiva, no nystagmus. EARS: Hearing grossly intact. Ear canals and tympanic membranes are within normal limits. MOUTH: Pharyngeal erythema is noted. NECK: Supple, trachea is midline, no adenopathy, no JVD, no carotid bruit, no c- spine tenderness, neck with full ROM. CHEST: Symmetric, no tenderness at palpation. LUNGS: Coarse breath sounds. No wheezing or crackles. CVS: Regular rate and rhythm, S1 and S2 present, no murmurs or gallops appreciated. ABDOMEN: Soft, non-tender. No signs of distention. No rebound, no guarding, and no masses palpated. Bowel sounds are normal. EXTREMITIES: FROM in all major joints, no edema, no cyanosis or clubbing. NEURO: Alert and oriented x 3. No acute neurological deficits. Speech is normal and follows commands. SKIN: Dry and warm. Triage Information Reviewed: Yes Vital Signs On Initial Exam: Initial Vitals Temp Pulse Resp BP Pulse Ox 99 F 96 16 122/87 99 06/24/19 12:38 06/24/19 12:38 06/24/19 12:38 06/24/19 12:38 06/24/19 12:38 Vital Signs Reviewed: Yes Procedures - Sedation Patient Received Moderate/Deep Sedation with Procedure: No Diagnostics - Vital Signs Vital Signs Temp Pulse Resp BP Pulse Ox 06/24/19 12:38 99 F 96 16 122/87 99 - Laboratory Result Diagrams: 06/24/19 12:58 06/24/19 12:58 Lab Statement: Any lab studies that have been ordered have been reviewed, and results considered in the medical decision making process. - Radiology CXR Radiology Interpretation Completed By: Radiologist Summary of Radiographic Findings: IMPRESSION: No active cardiopulmonary disease is noted. THIS REPORT WAS REVIEWED BY DR. MENESES. Re-Evaluation - Re-Evaluation First Eval Re-Evaluation Time: 14:22 Comment: Patient was prescribed Sudafed and Flonase. She will be discharged home with follow-up with primary care physician. She was recommended to return to the emergency department she develops any other symptoms. She understands and agrees. Complex Multi-Symp Course/Dx Assessment/Plan: Patient is a 33-year-old female who presents to the emergency department with sinus pressure, sinus discharge, sinus pain, nasal congestion and discharge and sore throat. Blood test results without any significant abnormality except for CRP of 17.1. Influenza A and B is negative, rapid strep is negative. Chest x-ray shows no acute pathology. I believe that the patient has a viral infection. Patient was given Sudafed and Flonase. She will be discharged home with follow-up with primary care physician. She was recommended to return to the emergency department she develops any other symptoms. She understands and agrees. - Diagnoses Provider Diagnoses: URI (upper respiratory infection) Discharge ED - Sign-Out/Discharge Documenting (check all that apply): Patient Departure - discharge - Discharge Plan Condition: Stable Disposition: HOME Prescriptions: Fluticasone NASAL SPRAY 50MCG* [Flonase NASAL SPRAY 50MCG*] 2 spray BOTH NARES DAILY #1 btl Pseudoephedrine HCL ER TAB* [Sudafed 12 Hour*] 120 mg PO BID #10 tab.er Patient Education Materials: Upper Respiratory Infection (ED) Referrals: Grace Mejia MD [Primary Care Provider] - 3 Days Additional Instructions: PLEASE RETURN TO ED FOR ANY NEW OR WORSENING SYMPTOMS. PLEASE FOLLOW UP WITH YOUR PRIMARY CARE PHYSICIAN WITHIN THREE DAYS. - Billing Disposition and Condition Condition: STABLE Disposition: Home - Attestation Statements Document Initiated by Kerrie: Yes Documenting Scribe: SHELLIE MCGREGOR Provider For Whom Kerrie is Documenting (Include Credential): ROBB MENESES MD Scribe Attestation: I, SHELLIE MCGREGOR, scribed for ROBB MENESES MD on 06/25/19 at 1242. Scribe Documentation Reviewed: Yes Provider Attestation: The documentation as recorded by the SHELLIE hampton accurately reflects the service I personally performed and the decisions made by me, ROBB MENESES MD Status of Scribe Document: Viewed
[2019-06-24 13:10] LABS: ABS Basophils 0.1 10^3/ul (0-0.2); ABS Eosinophils 0.5 10^3/ul (0-0.6); ABS Lymphocytes 1.1 10^3/ul (1.0-4.8); ABS Monocytes 0.7 10^3/ul (0-0.8); ABS Neutrophils 3.9 10^3/ul (1.5-7.7); Eosinophil % 7.4 %; Hematocrit 41 % (35-47); Hemoglobin 14.2 g/dL (12.0-16.0); Mean Corpuscular HGB Conc 35 g/dL (31-36); Mean Corpuscular Hemoglobin 31 pg (27-31); Mean Corpuscular Volume 90 fL (80-97); Mean Platelet Volume 8.2 fL (7.4-10.4); Nucleated Red Blood Cells % 0.1; Platelet Count 298 10^3/uL (150-450); Red Blood Count 4.52 10^6 /uL (3.70-4.87); Red Cell Distribution Width 14 % (10-15); White Blood Count 6.3 10^3/uL (3.5-10.8)
[2019-06-24 13:19] LABS: Rapid Strep Molecular Negative (Negative)
[2019-06-24 13:21] LABS: Albumin 3.8 g/dL (3.2-5.2); Calcium 8.8 mg/dL (8.6-10.3); Total Bilirubin 0.6 mg/dL (0.2-1.0)
[2019-06-24 13:28] LABS: Albumin/Globulin Ratio 1.2 (1-3); BUN/Creatinine Ratio 5.1 (8-20); C Reactive Protein 17.1 mg/L (<8.01); EGFR African American 101.4 (>60); EGFR Non-African American 83.8 (>60); Globulin 3.3 g/dL (2-4); Total Protein 7.1 g/dL (6.4-8.9)
[2019-06-24 13:29] LABS: Influenza A Molecular NEGATIVE (Negative); Influenza B Molecular NEGATIVE (Negative)
[2019-06-24 13:45] LABS: Potassium 3.7 mmol/L (3.5-5.0)
[2019-06-24 14:32] VITALS: BP 124/88
== END 2019-06-24 14:25 | disposition home or self-care (01) ==
LOC: ED 12:36
DX: J06.9 Acute upper respiratory infection, unspecified (principal); D57.3 Sickle-cell trait; Z87.891 Personal history of nicotine dependence; Z90.49 Acquired absence of other specified parts of digestive tract
CPT/HCPCS: 36415; 71046; 80053; 85025; 86140; 87651; 99282; A9270-GY